=== PATIENT | female | born 1945 | race African-American/Black ===

== ENCOUNTER 2023-03-29 13:14 | Inpatient (IN) | payer MEDICARE ==
[~2023-03-29] VITALS: Ht 162.6 cm; Wt 62.6 kg
[2023-03-29] MEDS ORDERED: MEMA5TAB42 PO (14:12)
[2023-03-29] MEDS ORDERED: FERR325T23 PO (14:12)
[2023-03-29] MEDS ORDERED: ASPI-1420 PO (14:12)
[2023-03-29] MEDS ORDERED: DOCU-141 PO (14:12)
[2023-03-29] MEDS ORDERED: AMLO-212 PO (14:12)
[2023-03-29] MEDS ORDERED: ATOR10TA PO (14:12)
[2023-03-29] MEDS ORDERED: LOSA100T31 PO (14:12)
[2023-03-29] MEDS ORDERED: OLAN10TA3 PO (14:12)
--- NOTE | 2023-03-29 14:15 | NUR ---
called GPS to give report. Report taken by Ru for contiuation of care
[2023-03-29] MEDS ORDERED: CHOL100043 PO (14:18)
--- NOTE | 2023-03-29 14:36 | NUR ---
patient transferred to gps via [facility]
[2023-03-29] MEDS ORDERED: ZOLPIDEM TARTRATE 5 MG TABLET PO PRN (15:00)
[2023-03-29] MEDS ORDERED: MAG HYDROX/AL HYDROX/SIMETH 30 ML UDC PO PRN (15:00)
[2023-03-29] MEDS ORDERED: LORAZEPAM 0.5 MG TABLET PO PRN (15:00)
[2023-03-29] MEDS ORDERED: MAGNESIUM HYDROXIDE 30 ML UDC PO PRN (15:00)
[2023-03-29] MEDS ORDERED: BLOOD SUGAR DIAGNOSTIC 1 EACH STRIP IN ONE (15:00)
[2023-03-29] MEDS ORDERED: ACETAMINOPHEN 325 MG TABLET PO PRN (15:00)
--- NOTE | 2023-03-29 15:17 | NUR ---
Dr. Sneed made aware of the admission with orders.
--- NOTE | 2023-03-29 15:25 | NUR ---
QING Initial Discharge Note: Patient stated that she currently resides at [address] [place] [address]; ([phone]). QING will contact pt's Kurt ([phone]) to notify of admission and discuss treatment/discharge plan. QING will coordinate with the MD, family, and pt to help coordinate appropriate discharge.
--- NOTE | 2023-03-29 15:25 | NUR ---
QING Clinical Note: Pt placed on a 5150 hold for GD. Per hold, pt has been aggressive at home and has been non compliant. Patient stated that she currently resides at [address] [place] [address]; ([phone]). QING will contact pt's Kurt ([phone]) to notify of admission and discuss treatment/discharge plan.
--- NOTE | 2023-03-29 15:39 | NUR ---
IQNG Family Contact: QING contacted pt's Kurt ([phone]) and discussed treatment/discharge plan. stated that it is unsafe for pt to return back home and would want pt to go to a half-way. He reported she has been difficult at home and has been aggressive at home. QING will send clinicals to SNF when pt is stable.
[2023-03-29 15:59] VITALS: BP 114/55
--- NOTE | 2023-03-29 18:00 | NUR ---
RN-ADMISSION NOTES PATIENT ARRIVED IN THE UNIT AROUND 1430 PM FROM [facility] ER. ADMITTED A 77 Y.O FEMALE PATIENT . PATIENT ON 5150 HOLD FOR GD ADULT.PATIENT IS UNDER THE CARE OF DR. MALIN AND DESTINY NINA,BOTH MD WAS MADE AWARE OF THE ADMISSION. PATIENT IS A/O X1 WITH DEPRESSED,FLAT AFFECT,CONFUSED AND PARANOID, STATED THAT HER IS TRYING TO POISON HER AND THAT THE IS THE ONE BROUGHT HER TO THE HOSPITAL. PATIENT IS POOR HISTORIAN BUT COOPERATIVE DURING THE ADMISSION PROCESS. PATIENT SIGN ALL ADMISSION PAPERS,ADVISEMENT AND PATIENT'S RIGHT WAS REVIEWED AND COPY GIVEN TO HER.PATIENT WAS ORIENTED IN THE ROOM,AROUND THE UNIT AND UNIT POLICIES. CONTRABAND ,SKIN ASSESSMENT DONE. MRSA DONE AND SENT TO THE LAB. PATIENT'S KEELEY GERMAN ([phone]) WAS MADE AWARE OF THE ADMISSION. ALL NEEDS ATTENDED AND ANTICIPATED.WILL CONT. MONITORING FOR SAFETY AND BEHAVIOR. WILL ENDORSE TO THE INCOMING SHIFT FOR THE CONTINUITY OF CARE AND ADMISSION PROCESS.
--- NOTE | 2023-03-29 20:43 | NUR ---
SOCIAL SCIENCES LECTURER NOTE; RECEIVED PATIENT ON HER ROOM ,A/O X1, RESIDENT IS DISPLAYING ,NO APPARENT DISTRESS NOTED. BREATHING EVEN AND NON-LABORED ,NO SOB .RESIDENT IS CONFUSED ,PARANOID,IN DEPRESSED MOOD,DISORGANIZED THOUGHTS, NO C/O PAIN OR DISCOMFORT AT THIS TIME,AMBULATORY WITH STEADY GAIT.ALL NEEDS MET AND ANTICIPATED.WILL CONTINUE TO MONITOR Q15 MINS FOR SAFETY AND BEHAVIOR.
[2023-03-29] MEDS: ATORVASTATIN 10 MG TABLET PO SCH (21:19)
[2023-03-30 07:29] LABS: BILIRUBIN,TOTAL 0.4 mg/dL (0.2-1.0); CALCIUM, SERUM 9.3 mg/dL (8.5-10.1); CREATININE 0.9 mg/dL (0.6-1.3); POTASSIUM 3.7 mmol/L (3.5-5.1); TOTAL PROTEIN, SERUM 6.3 g/dL (6.4-8.2)
[2023-03-30 08:00] VITALS: BP 156/87
[2023-03-30] MEDS: FERROUS SULFATE (325 MG) 325 MG/TAB TABLET PO SCH (08:26)
[2023-03-30] MEDS: CHOLECALCIFEROL 1,000 UNIT TABLET (VIT D3) PO SCH (08:26)
[2023-03-30] MEDS: ASPIRIN EC 81 MG TABLET.DR PO SCH (08:26)
[2023-03-30] MEDS: MEMANTINE HCL 5 MG TABLET PO SCH ×2 (08:26→16:35)
[2023-03-30] MEDS: AMLODIPINE BESYLATE 5 MG TABLET PO SCH (08:27)
[2023-03-30] MEDS: LOSARTAN POTASSIUM 50 MG TABLET PO SCH (08:27)
[2023-03-30 16:00] VITALS: BP 128/65
[2023-03-30] MEDS: OLANZAPINE 2.5 MG TABLET PO SCH (16:34)
--- NOTE | 2023-03-30 19:54 | NUR ---
MAJOR APPLIANCE ASSEMBLY SUPERVISOR NOTE; RECEIVED PATIENT ON HER ROOM ,A/O X1, RESIDENT IS DISPLAYING ,NO APPARENT DISTRESS NOTED. BREATHING EVEN AND NON-LABORED ,NO SOB .RESIDENT IS CONFUSED ,PARANOID,IN DEPRESSED MOOD,DISORGANIZED THOUGHTS, NO C/O PAIN OR DISCOMFORT AT THIS TIME,AMBULATORY WITH STEADY GAIT.ALL NEEDS MET AND ANTICIPATED.WILL CONTINUE TO MONITOR Q15 MINS FOR SAFETY AND BEHAVIOR.
[2023-03-30 20:47] VITALS: BP 152/83
[2023-03-30] MEDS: ATORVASTATIN 10 MG TABLET PO SCH (21:40)
[2023-03-31 08:00] VITALS: BP 122/75
[2023-03-31] MEDS: OLANZAPINE 2.5 MG TABLET PO SCH ×2 (08:59→17:04)
[2023-03-31] MEDS: MEMANTINE HCL 5 MG TABLET PO SCH ×2 (08:59→17:04)
[2023-03-31] MEDS: LOSARTAN POTASSIUM 50 MG TABLET PO SCH (09:00)
[2023-03-31] MEDS: DOCUSATE SODIUM 100 MG CAPSULE PO PRN (09:00)
[2023-03-31] MEDS: FERROUS SULFATE (325 MG) 325 MG/TAB TABLET PO SCH (09:01)
[2023-03-31] MEDS: ESCITALOPRAM OXALATE (10 MG) 10 MG TABLET PO SCH (09:01)
[2023-03-31] MEDS: AMLODIPINE BESYLATE 5 MG TABLET PO SCH (09:01)
[2023-03-31] MEDS: CHOLECALCIFEROL 1,000 UNIT TABLET (VIT D3) PO SCH (09:01)
[2023-03-31] MEDS: ASPIRIN EC 81 MG TABLET.DR PO SCH (09:01)
[2023-03-31 16:00] VITALS: BP 124/52
[2023-03-31 20:12] VITALS: BP 129/53
--- NOTE | 2023-03-31 21:01 | NUR ---
DIE TRIPPER NOTE; RECEIVED PATIENT ON HER ROOM ,A/O X1, RESIDENT IS DISPLAYING ,NO APPARENT DISTRESS NOTED. BREATHING EVEN AND NON-LABORED ,NO SOB .RESIDENT IS CONFUSED ,PARANOID,IN DEPRESSED MOOD,DISORGANIZED THOUGHTS, NO C/O PAIN OR DISCOMFORT AT THIS TIME,AMBULATORY WITH STEADY GAIT.ALL NEEDS MET AND ANTICIPATED.WILL CONTINUE TO MONITOR Q15 MINS FOR SAFETY AND BEHAVIOR.
[2023-03-31] MEDS: ATORVASTATIN 10 MG TABLET PO SCH (21:40)
[2023-04-01 08:00] VITALS: BP 121/71
[2023-04-01] MEDS: MEMANTINE HCL 5 MG TABLET PO SCH ×2 (09:06→17:19)
[2023-04-01] MEDS: ASPIRIN EC 81 MG TABLET.DR PO SCH (09:06)
[2023-04-01] MEDS: FERROUS SULFATE (325 MG) 325 MG/TAB TABLET PO SCH (09:06)
[2023-04-01] MEDS: OLANZAPINE 2.5 MG TABLET PO SCH ×2 (09:06→17:19)
[2023-04-01] MEDS: AMLODIPINE BESYLATE 5 MG TABLET PO SCH (09:07)
[2023-04-01] MEDS: CHOLECALCIFEROL 1,000 UNIT TABLET (VIT D3) PO SCH (09:07)
[2023-04-01] MEDS: LOSARTAN POTASSIUM 50 MG TABLET PO SCH (09:08)
[2023-04-01] MEDS: ESCITALOPRAM OXALATE (10 MG) 10 MG TABLET PO SCH (09:08)
[2023-04-01 16:00] VITALS: BP 118/64
[2023-04-01 20:00] VITALS: BP 137/61
[2023-04-01] MEDS: ATORVASTATIN 10 MG TABLET PO SCH (21:30)
[2023-04-02 08:00] VITALS: BP 149/85
[2023-04-02] MEDS: OLANZAPINE 2.5 MG TABLET PO SCH ×2 (09:34→16:08)
[2023-04-02] MEDS: MEMANTINE HCL 5 MG TABLET PO SCH ×2 (09:34→16:08)
[2023-04-02] MEDS: ASPIRIN EC 81 MG TABLET.DR PO SCH (09:34)
[2023-04-02] MEDS: CHOLECALCIFEROL 1,000 UNIT TABLET (VIT D3) PO SCH (09:34)
[2023-04-02] MEDS: ESCITALOPRAM OXALATE (10 MG) 10 MG TABLET PO SCH (09:34)
[2023-04-02] MEDS: LOSARTAN POTASSIUM 50 MG TABLET PO SCH (09:35)
[2023-04-02] MEDS: FERROUS SULFATE (325 MG) 325 MG/TAB TABLET PO SCH (09:35)
[2023-04-02] MEDS: AMLODIPINE BESYLATE 5 MG TABLET PO SCH (09:35)
--- NOTE | 2023-04-02 12:42 | NUR ---
QING Family Contact: QING contacted pt's daughter Carmen ([phone]) and left a voicemail in regards to discharge planning.
[2023-04-02 16:04] VITALS: BP 148/58
[2023-04-02] MEDS: DOCUSATE SODIUM 100 MG CAPSULE PO PRN ×2 (16:08→16:24)
--- NOTE | 2023-04-02 20:00 | NUR ---
RN NOTE : - RECEIVED PATIENT IN BED AWAKE, ALERT AND ORIENTED X2, NO S/SX OF ACUTE DISTRESS NOTED. PATIENT IS CALM, COOPERATIVE TO CARE, WITH PERIODS OF FORGETFULNESS. DENIES SI/HI/AVH AT THIS TIME. SAFETY PRECAUTIONS MAINTAINED, WILL CONTINUE TO MONITOR Q15MIN ROUNDS FOR SAFETY.
[2023-04-02 20:56] VITALS: BP 146/73
[2023-04-02] MEDS: ATORVASTATIN 10 MG TABLET PO SCH (21:05)
--- NOTE | 2023-04-03 06:35 | NUR ---
RN NOTE :- PATIENT IS SLEEPING COMFORTABLY IN BED, EASILY AWAKEN, CALM, RESPONSIVE, AOX2, BREATHING ON ROOM AIR WITHOUT DIFFICULTY, NOT IN ANY FORM OF ACUTE DISTRESS, SAFETY MEASURES IN PLACE: BED IN LOWEST AND LOCKED POSITION, SIDE RAILS UP X2, TRAY TABLE WITHIN EASY REACH. WILL ENDORSE TO MORNING SHIFT NURSE.
[2023-04-03 08:00] VITALS: BP 123/63
[2023-04-03] MEDS: CHOLECALCIFEROL 1,000 UNIT TABLET (VIT D3) PO SCH (08:59)
[2023-04-03] MEDS: FERROUS SULFATE (325 MG) 325 MG/TAB TABLET PO SCH (08:59)
[2023-04-03] MEDS: LOSARTAN POTASSIUM 50 MG TABLET PO SCH (08:59)
[2023-04-03] MEDS: ASPIRIN EC 81 MG TABLET.DR PO SCH (08:59)
[2023-04-03] MEDS: MEMANTINE HCL 5 MG TABLET PO SCH ×2 (09:00→16:22)
[2023-04-03] MEDS: ESCITALOPRAM OXALATE (10 MG) 10 MG TABLET PO SCH (09:00)
[2023-04-03] MEDS: AMLODIPINE BESYLATE 5 MG TABLET PO SCH (09:00)
[2023-04-03] MEDS: OLANZAPINE 2.5 MG TABLET PO SCH ×2 (09:00→16:22)
--- NOTE | 2023-04-03 09:13 | NUR ---
RN-CO: Patient is asleep but moved when I called her name.No acute distress noted. Took her medications and ate breakfast. She is isolative and withdrawn.Noted that she is unmotivated and depressed, easily irritated and overwhelm. I encouraged her to attend group activities.
[2023-04-03 16:00] VITALS: BP 154/74
[2023-04-03] MEDS: DOCUSATE SODIUM 100 MG CAPSULE PO PRN (16:22)
[2023-04-03 19:57] VITALS: BP 136/64
[2023-04-03] MEDS: ATORVASTATIN 10 MG TABLET PO SCH (21:17)
[2023-04-03] MEDS: OLANZAPINE 5 MG TABLET PO SCH (21:17)
--- NOTE | 2023-04-04 06:06 | NUR ---
RN NOTE :- PATIENT IS SLEEPING COMFORTABLY IN BED, MED COMPLIANT,EASILY AWAKEN, CALM, RESPONSIVE, AOX2, BREATHING ON ROOM AIR WITHOUT DIFFICULTY, NOT IN ANY FORM OF ACUTE DISTRESS, SAFETY MEASURES IN PLACE: BED IN LOWEST AND LOCKED POSITION, SIDE RAILS UP X2, TRAY TABLE WITHIN EASY REACH. WILL ENDORSE TO MORNING SHIFT NURSE.
[2023-04-04 08:00] VITALS: BP 100/97
[2023-04-04] MEDS: FERROUS SULFATE (325 MG) 325 MG/TAB TABLET PO SCH (08:44)
[2023-04-04] MEDS: ESCITALOPRAM OXALATE (10 MG) 10 MG TABLET PO SCH (08:45)
[2023-04-04] MEDS: CHOLECALCIFEROL 1,000 UNIT TABLET (VIT D3) PO SCH (08:45)
[2023-04-04] MEDS: LOSARTAN POTASSIUM 50 MG TABLET PO SCH (08:45)
[2023-04-04] MEDS: OLANZAPINE 2.5 MG TABLET PO SCH ×2 (08:45→16:30)
[2023-04-04] MEDS: MEMANTINE HCL 5 MG TABLET PO SCH ×2 (08:45→16:30)
[2023-04-04] MEDS: ASPIRIN EC 81 MG TABLET.DR PO SCH (08:45)
[2023-04-04] MEDS: AMLODIPINE BESYLATE 5 MG TABLET PO SCH (08:46)
--- NOTE | 2023-04-04 09:08 | NUR ---
QING Family Contact: QING contacted pt's Kurt ([phone]) and left a voicemail of 5250 hearing. Addendum: 04/04/23 at 907 by QING CARL Nabat: Court Notification: QING contacted pt's Kurt ([phone]) and left a voicemail of 5250 hearing. Addendum: 04/04/23 at [address] Notification: QING contacted pt's Kurt ([phone]) and left a voicemail of 5250 hearing.
--- NOTE | 2023-04-04 09:25 | NUR ---
Court Hearing: Patient's court hearing for 6540 was today and it was upheld for GD.
--- NOTE | 2023-04-04 09:50 | NUR ---
RN Notes: Received pt. awake in the room and responsive to staffs. Pt. ate 100% for breakfast. BP meds not given for a low BP and compliant on the rest of the po meds. Encouraged to verbalize feelings and motivated to attend group activity. Pt. is confused and stayed in the room most of the time. Pt. isolates in the room and refused to attend group activity. Needs attended and will continue to monitor for safety.
--- NOTE | 2023-04-04 10:40 | NUR ---
QING Family Contact: SW contacted pt's Kurt ([phone]) spoke with who stated that he would want a facility in [place]. QING informed this data analyst report writer knows one facility in [place] and will go ahead and fax clinicals. He stated if she is not accepted any facility in [place] location would work out.
--- NOTE | 2023-04-04 10:41 | NUR ---
SNF Referral: SW sent clinicals to Cole schneider [facility] ([phone]) for placement. SW sent H & P, progress notes, and medication list.
--- NOTE | 2023-04-04 14:18 | NUR ---
SNF Contact: SW spoke with Cole schneider for [facility] ([phone]) who stated that pt is accepted.
--- NOTE | 2023-04-04 14:21 | NUR ---
QING Family Contact: QING contacted pt's Kurt ([phone]) and notified that pt is accepted at [facility]. He stated that he will tour the facility.
[2023-04-04 16:00] VITALS: BP 116/64
[2023-04-04 20:00] VITALS: BP 104/80
[2023-04-04] MEDS: ATORVASTATIN 10 MG TABLET PO SCH (21:27)
[2023-04-04] MEDS: OLANZAPINE 5 MG TABLET PO SCH (21:27)
--- NOTE | 2023-04-05 06:21 | NUR ---
RN NOTE :-PATIENT IS SLEEPING COMFORTABLY IN BED, EASILY AWAKEN, CALM, RESPONSIVE, AOX2, MED COMPLIANT,BREATHING ON ROOM AIR WITHOUT DIFFICULTY, NOT IN ANY FORM OF ACUTE DISTRESS, SAFETY MEASURES IN PLACE: BED IN LOWEST AND LOCKED POSITION, SIDE RAILS UP X2, TRAY TABLE WITHIN EASY REACH. WILL ENDORSE TO MORNING SHIFT NURSE.
[2023-04-05 08:00] VITALS: BP 131/76
[2023-04-05] MEDS: LOSARTAN POTASSIUM 50 MG TABLET PO SCH (09:24)
[2023-04-05] MEDS: OLANZAPINE 2.5 MG TABLET PO SCH ×2 (09:24→17:46)
[2023-04-05] MEDS: FERROUS SULFATE (325 MG) 325 MG/TAB TABLET PO SCH (09:24)
[2023-04-05] MEDS: ASPIRIN EC 81 MG TABLET.DR PO SCH (09:24)
[2023-04-05] MEDS: MEMANTINE HCL 5 MG TABLET PO SCH ×2 (09:24→17:46)
[2023-04-05] MEDS: AMLODIPINE BESYLATE 2.5 MG TABLET PO SCH (09:25)
[2023-04-05] MEDS: CHOLECALCIFEROL 1,000 UNIT TABLET (VIT D3) PO SCH (09:25)
[2023-04-05] MEDS: ESCITALOPRAM OXALATE (10 MG) 10 MG TABLET PO SCH (09:25)
[2023-04-05] MEDS ORDERED: LORAZEPAM INJ 2 MG/ML VIAL ONE (11:28)
[2023-04-05 15:56] VITALS: BP 131/84
[2023-04-05 20:00] VITALS: BP 110/50
--- NOTE | 2023-04-05 20:52 | NUR ---
ONLINE PRODUCER NOTE:RECEIVED PATIENT SLEEPING COMFORTABLY IN BED,EASY TO AROUSE, AOX2, BREATHING NON-LABORED WITH EQUAL RISE AND FALL OF THE CHEST,NO ACUTE DISTRESS. MEDICATION COMPLIANT,NO C/O PAIN OR DISCOMFORT AT THIS TIME.ENCOURAGE TO USE WALKER TO AMBULATE. BED IN LOWEST AND LOCKED POSITION, SIDE RAILS UP X2, WILL CONTINUE TO MONITOR FOR SAFETY AND BEHAVIOR.
[2023-04-05] MEDS: OLANZAPINE 5 MG TABLET PO SCH (21:37)
[2023-04-05] MEDS: ATORVASTATIN 10 MG TABLET PO SCH (21:37)
[2023-04-06 08:00] VITALS: BP 126/79
[2023-04-06] MEDS: MEMANTINE HCL 5 MG TABLET PO SCH ×2 (08:17→16:15)
[2023-04-06] MEDS: DOCUSATE SODIUM 100 MG CAPSULE PO PRN ×2 (08:17→16:15)
[2023-04-06] MEDS: OLANZAPINE 2.5 MG TABLET PO SCH ×2 (08:17→16:15)
[2023-04-06] MEDS: AMLODIPINE BESYLATE 2.5 MG TABLET PO SCH (08:18)
[2023-04-06] MEDS: LOSARTAN POTASSIUM 50 MG TABLET PO SCH (08:18)
[2023-04-06] MEDS: FERROUS SULFATE (325 MG) 325 MG/TAB TABLET PO SCH (08:18)
[2023-04-06] MEDS: ASPIRIN EC 81 MG TABLET.DR PO SCH (08:18)
[2023-04-06] MEDS: CHOLECALCIFEROL 1,000 UNIT TABLET (VIT D3) PO SCH (08:18)
[2023-04-06] MEDS: ESCITALOPRAM OXALATE (10 MG) 10 MG TABLET PO SCH (08:18)
[2023-04-06 16:01] VITALS: BP 106/62
--- NOTE | 2023-04-06 20:41 | NUR ---
RN NOTES: PATIENT AWAKE, ALERT RESTING IN BED AND ORIENTED X2, NO S/SX OF ACUTE DISTRESS NOTED. PATIENT IS CALM, COOPERATIVE TO CARE, WITH PERIODS OF FORGETFULNESS. DENIES SI/HI/AVH AT THIS TIME. SAFETY PRECAUTIONS MAINTAINED, ENCOURAGED TO VERBALIZED ANY FEELING OR CONCERN WILL CONTINUE TO MONITOR Q15MIN ROUNDS FOR SAFETY.
[2023-04-06 20:45] VITALS: BP 115/64
[2023-04-06] MEDS: ATORVASTATIN 10 MG TABLET PO SCH (21:08)
[2023-04-06] MEDS: OLANZAPINE 5 MG TABLET PO SCH (21:08)
[2023-04-07 08:00] VITALS: BP 137/80
[2023-04-07] MEDS: LOSARTAN POTASSIUM 50 MG TABLET PO SCH (08:25)
[2023-04-07] MEDS: FERROUS SULFATE (325 MG) 325 MG/TAB TABLET PO SCH (08:25)
[2023-04-07] MEDS: OLANZAPINE 2.5 MG TABLET PO SCH ×2 (08:25→16:35)
[2023-04-07] MEDS: MEMANTINE HCL 5 MG TABLET PO SCH ×2 (08:25→16:35)
[2023-04-07] MEDS: ASPIRIN EC 81 MG TABLET.DR PO SCH (08:25)
[2023-04-07] MEDS: ESCITALOPRAM OXALATE (10 MG) 10 MG TABLET PO SCH (08:25)
[2023-04-07] MEDS: CHOLECALCIFEROL 1,000 UNIT TABLET (VIT D3) PO SCH (08:25)
[2023-04-07] MEDS: DOCUSATE SODIUM 100 MG CAPSULE PO PRN (08:25)
[2023-04-07] MEDS: AMLODIPINE BESYLATE 2.5 MG TABLET PO SCH (08:26)
[2023-04-07 16:00] VITALS: BP 136/60
[2023-04-07 20:10] VITALS: BP 131/64
[2023-04-07] MEDS: ATORVASTATIN 10 MG TABLET PO SCH (21:18)
[2023-04-07] MEDS: OLANZAPINE 5 MG TABLET PO SCH (21:18)
--- NOTE | 2023-04-07 21:20 | NUR ---
Pt A/O x3 and able to make needs known. Pt is compliant with care and friendly with staff. Compliant with all PM meds and tolerated well. Pt is calm and resting in bed without s/s of any kind of distress. Frequent visual check done for safety Q 15mins. Will continue to monitor. Will endorse to next shift.
[2023-04-08 08:00] VITALS: BP 117/64
--- NOTE | 2023-04-08 08:00 | NUR ---
received pt.quiet,walks around,pleasant.med compliant.
[2023-04-08] MEDS: LOSARTAN POTASSIUM 50 MG TABLET PO SCH (09:00)
[2023-04-08] MEDS: MEMANTINE HCL 5 MG TABLET PO SCH ×2 (10:09→16:05)
[2023-04-08] MEDS: DOCUSATE SODIUM 100 MG CAPSULE PO PRN (10:09)
[2023-04-08] MEDS: ASPIRIN EC 81 MG TABLET.DR PO SCH (10:09)
[2023-04-08] MEDS: CHOLECALCIFEROL 1,000 UNIT TABLET (VIT D3) PO SCH (10:09)
[2023-04-08] MEDS: FERROUS SULFATE (325 MG) 325 MG/TAB TABLET PO SCH (10:09)
[2023-04-08] MEDS: OLANZAPINE 2.5 MG TABLET PO SCH ×2 (10:09→16:05)
[2023-04-08] MEDS: ESCITALOPRAM OXALATE (10 MG) 10 MG TABLET PO SCH (10:14)
[2023-04-08] MEDS: AMLODIPINE BESYLATE 2.5 MG TABLET PO SCH (10:16)
[2023-04-08 16:00] VITALS: BP 120/76
[2023-04-08 20:52] VITALS: BP 120/63
[2023-04-08] MEDS: ATORVASTATIN 10 MG TABLET PO SCH (21:10)
[2023-04-08] MEDS: OLANZAPINE 5 MG TABLET PO SCH (21:10)
[2023-04-09 08:00] VITALS: BP 119/77
--- NOTE | 2023-04-09 08:09 | NUR ---
SW Discharge Note: Patient will discharge to [facility] located at [address] [facility], [address]; ([phone]). Please provide ambulance at 1PM. Patients Kurt ([phone]) is aware and agreeable. Patient is alert and oriented x1 (self). Patient denies suicidal or homicidal ideation. Patient denies visual/auditory hallucinations. Patient will follow up with Psychiatrist, Dr. Pabon located at [address] [facility], [address]; ([phone]).Patient will follow up with Investigation Clerk, Dr. Newell located at [address] [facility] [facility], [address]; ([phone]). Patient presents with euthymic mood and congruent affect.
[2023-04-09] MEDS: CHOLECALCIFEROL 1,000 UNIT TABLET (VIT D3) PO SCH (08:59)
[2023-04-09] MEDS: MEMANTINE HCL 5 MG TABLET PO SCH (08:59)
[2023-04-09] MEDS: FERROUS SULFATE (325 MG) 325 MG/TAB TABLET PO SCH (08:59)
[2023-04-09] MEDS: OLANZAPINE 2.5 MG TABLET PO SCH (08:59)
[2023-04-09] MEDS: ASPIRIN EC 81 MG TABLET.DR PO SCH (08:59)
[2023-04-09 09:00] VITALS: BP 119/77
[2023-04-09] MEDS: ESCITALOPRAM OXALATE (10 MG) 10 MG TABLET PO SCH (09:00)
[2023-04-09] MEDS: AMLODIPINE BESYLATE 2.5 MG TABLET PO SCH (09:00)
[2023-04-09] MEDS: LOSARTAN POTASSIUM 50 MG TABLET PO SCH (09:00)
--- NOTE | 2023-04-09 13:30 | NUR ---
DISCHARGE NOTE 77 YEAR OLD FEMALE [facility] [address] [facility] [address] IN STABLE CONDITION. COMPLIANT WITH MEDICATIONS COOPERATIVE WITH TREATMENT PLANS. PT DENIES SI/HI/AVH AND INSTRUCTED TO GO TO THE CLOSEST ER IF DEVELOPING SI/HI. BEHAVIOR IMPROVED, PSYCHIATRIC TX PLANS MET MEDICAL TX PLANS DEFERRED FOR CONTINUAL MONITORING. EDUCATED PT ABOUT AFTER CARE PLAN AND COPY PROVIDED. RETURNED PERSONAL BELONGINGS TO PATIENT MEDICATIONS RECONCILED WITH DR. MALIN AND DR. MCCRAY. REPORT GIVEN TO BAMBI CASTELLON AT [facility] FOR CONTINUITY OF CARE PT SIGNED DISCHARGE PAPERWORK. NO WOUNDS PRESENT PT LEFT THE UNIT AT 1330 VIA AMBULANCE.
== END 2023-04-09 13:36 | DRG 881 ==
LOC: ER 13:19 → GPS 14:10
PROVIDERS: ADMIT Psychiatry & Neurology Psychiatry; ATTEND Internal Medicine
DX: F32.A Depression, unspecified (principal); F01.52 Vascular dementia, unspecified severity, with psychotic disturbance; F01.53 Vascular dementia, unspecified severity, with mood disturbance; F01.518 Vascular dementia, unspecified severity, with other behavioral disturbance; F29 Unspecified psychosis not due to a substance or known physiological condition; Z73.6 Limitation of activities due to disability; E78.5 Hyperlipidemia, unspecified; I10 Essential (primary) hypertension
CPT/HCPCS: 36415; 80053-TC; 80061-TC; 82962-TC; 87081-TC; J2060